=== PATIENT | male | born 1975 | race Caucasian/White ===

== ENCOUNTER → 2017-04-20 | Outpatient (CLI) | payer OTHER ==
[2017-04-20 16:17] LABS: HEMOGLOBIN 15.9 g/dL (14.1-18.0); LYMPH # 1.7 K/mm3 (0.7-4.5); LYMPH % 23.5 % (10-50)
[2017-04-20 19:15] LABS: BUN 10 mg/dL (7-18)
[2017-04-20 19:21] LABS: GFR (ESTIMATED) 94 ML/MIN (>60)
[2017-04-22 08:40] LABS: Folate (Folic Acid) >20.0 ng/mL (>3.0); HIV Screen 4th Generation wRfx Non Reactive (Non Reactive); Vitamin B12 667 pg/mL (211-946)
[2017-04-22 09:37] LABS: HBsAg Screen Negative (Negative); Hep A Ab, IgM Negative (Negative); Hep B Core Ab, IgM Negative (Negative); Hep C Virus Ab <0.1 (0.0-0.9)
[2017-04-24 09:38] LABS: Vitamin D, 25-Hydroxy 21.2 ng/mL (30.0-100.0)
[2017-04-25 10:39] LABS: Free Testosterone(Direct) 6.5 pg/mL (8.7-25.1)
== END ==
LOC: LAB 15:32
PROVIDERS: Physician Assistant
DX: R81 Glycosuria (principal); Z00.00 Encounter for general adult medical examination without abnormal findings
CPT/HCPCS: G0432